=== PATIENT | male | born 2000 | race Caucasian/White ===

== ENCOUNTER 2020-04-13 12:46 | Outpatient (REF) | payer BC, SELFPAY | END 2020-04-13 12:47 | disposition home or self-care (01) | LOC: HO.LAB 12:46 | PROVIDERS: Visit Provider Internal Medicine | DX: Z20.828 Contact with and (suspected) exposure to other viral communicable diseases (principal) | CPT/HCPCS: C9803; U0003 ==

== ENCOUNTER 2025-03-17 14:21 | Outpatient (AMB) | payer OTHER, BC, SELFPAY ==
--- NOTE | 2025-03-17 14:44 | A.OFFPC_ITS ---
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 care/gerd/anxiety symptoms HPI Details Pt is a 24 y.o male who presents today to [facility]. He is transferring from pediatrics. He has a hx of gerd and anxiety. Psych: States that his anxiety is currently well-controlled. Does think that he would benefit from seeing a therapist. GI: He states 02/06 he went to ER with GI upset and was dx with gastritis and GERD. States he has no current symptoms. Symptoms resolved with Pepcid for a few days. He states that caffeine we will trigger some heartburn so he generally avoids it. Derm: Has noticed a patch of hair loss in the back of his scalp. This is been there for months. It is asymptomatic. No new products. No contacts with similar symptoms no prior history of something like this before. Fam hx: denies any significant hx. PFS Surgical History (Updated 03/17/25 @ 14:49 by Eboni Stoner CMA) No pertinent past surgical history Family History (Updated 03/17/25 @ 14:56 by Eboni Stoner CMA) Mother High cholesterol Cardiovascular disease Thyroid disorder Father History of kidney cancer Maternal Grandfather Diabetes Cardiovascular disease Paternal Grandfather HTN (hypertension) High cholesterol Diabetes Cardiovascular disease Social History (Updated 03/17/25 @ 14:51 by Eboni Stoner CMA) Housing: House Alcohol intake: current Patient Tobacco Use Status: Never used Tobacco e-Cigarette/Vaping Use: Never Used Second Hand Smoke Exposure: Yes (as a child) Substance Use Type: Marijuana service: No Current occupational status: employed Current occupation: [employer] Current occupational exposures/hazards: No Cognitive needs: No Hearing needs: No Vision needs: No Questionnaire PHQ-9 Over the last 2 weeks, how often have you been bothered by any of the following problems? 1. Little interest or pleasure in doing things: not at all 2. Feeling down, depressed, or hopeless: not at all 3. Trouble falling or staying asleep, or sleeping too much: not at all 4. Feeling tired or having little energy: several days 5. Poor appetite or overeating: not at all 6. Feeling bad about yourself - or that you are a failure or have let yourself or your family down: not at all 7. Trouble concentrating on things, such as reading the newspaper or watching television: not at all 8. Moving or speaking so slowly that other people could have noticed. Or the opposite - being so fidgety or restless that you have been moving around a lot more than usual: not at all 9. Thoughts that you would be better off or of hurting yourself in some way: not at all Total score: 1 Depression Screening Interpretation: Negative Depression Screening Done: Yes 66979 - PHQ-9 Billing: Yes Source: Developed by Drs. Leif Sierra, Cierra Sanchez, Gilberto Lucas and colleagues, with an educational emily from [employer]. Thrive Questionnaire Date Thrive assessed: 03/14/25 I am a: Patient What is your living situation today?: I have a steady place to live Within the past 12 months, did the food you bought not last and you didn't have the money to get more?: Never true Within the past 12 months, did you worry whether your food would run out before you got money to buy more?: Never true Do you have trouble paying for medicines?: No Do you have trouble getting transportation to medical appointments?: No Do you have trouble paying your heating and electricity bill?: No Do you have trouble taking care of your child, family member or friend?: No Do you have trouble with day-to-day activities such as bathing, preparing meals, shopping, managing finances, etc.?: No Are you currently unemployed and looking for a job?: No Are you interested in more education?: No Please select the resources that you would like help with: None Currently or been in a relationship where the following occur: No concerns reported THRIVE Score: 0 AUDIT C Alcohol Use Questionnaire (AUDIT-C) 1. How often do you have a drink containing alcohol?: Monthly or less 2. How many drinks containing alcohol do you have on a typical day when you are drinking?: 1 or 2 3. How often do you have six or more drinks on one occasion?: Less than monthly Total Score: 2 DESTINI-7 AMB Questionnaire DESTINI-7 Date DESTINI - 7 assessed: 03/17/25 Feeling nervous, anxious, or on edge: 1 = Several days Not being able to stop or control worryin = Not at all Worrying too much about different things: 1 = Several days Trouble relaxin = Not at all Being so restless that it is hard to sit still: 1 = Several days Becoming easily annoyed or irritable: 1 = Several days Feeling afraid as if something awful might happen: 0 = Not at all Total DESTINI-7 score (0-4 normal; 5-9 mild; 10-14 moderate; 15-21 severe): 4 Source: Developed by Drs. Leif Sierra, Cierra Sanchez, Gilberto Lucas and colleagues, with an educational emily from [employer]. DESTINI-7 Assessment Billing DESTINI-7 Assessment Tool: DESTINI-7 Assessment 46738 Physical exam (Primary Care) Vital Signs: Last Vital Signs Temp 98.1 F 03/17/25 14:51 Pulse 73 03/17/25 14:51 Resp 12 03/17/25 14:51 BP 124/72 03/17/25 14:51 Pulse Ox 98 03/17/25 14:51 Oxygen Delivery Method Room Air 03/17/25 14:51 BMI result Body Mass Index 20.0 Tobacco/Smoking Status: Tobacco use Status Tobacco use date assessed 03/17/25 03/17/25 14:56 Patient Tobacco Use Status Never used Tobacco 03/17/25 14:56 e-Cigarette/Vaping Use Never Used 03/17/25 14:56 PHQ-9: PHQ-9 Score PHQ-9: Total score 1 03/17/25 15:49 Depression Screening Interpretation: Negative Thrive Assessment: Date of Thrive Assessment Date Thrive assessed 03/14/25 03/17/25 14:46 Currently or been in a relationship where the following occur: No concerns reported Const Orientation/consciousness: patient oriented x3 HENMT Ears: hearing grossly normal bilaterally Neck Thyroid: Thyroid normal Lymphatic: no lymphadenopathy noted Resp Auscultation: clear to auscultation bilaterally Cardio Rate: regular rate Rhythm: regular rhythm Heart sounds: S1 normal heart sound present and S2 normal heart sound present GI Inspection: Yes normal to inspection Palpation (GI): Soft to palpation and Other GI palpation findings present (nontender, no cva tenderness) Auscultation: normoactive bowel sounds Rectal Exam - Male: Yes deferred Skin Other: There is a quarter-sized patch of hair loss noted. The scalp is smooth. Neuro General: patient oriented x3, gait normal and no focal motor deficits Office Procedures Flu Questionnaire Does the patient have a severe egg allergy?: No Does the patient have severe life threatening allergies?: No Does the patient have a fever or illness today?: No Has the patient ever had Guillain-[place] Syndrome?: No Has the patient ever had any past reaction to a flu shot?: No Immunizations Fluarix [id number] (PF) 45 mcg (15 mcg x 3)/0.5 mL IM syringe Performing Provider: Jamaica Ingram PA-C [place] [facility] [facility] Administered by: Eboni Stoner CMA on 03/17/25 15:49 Dose Route Admin Location Dispensed Lot Number Expiration Date NDC Treatment Supervisor 0.5 mL IM Right Deltoid 0.5 mL [id number] 11/30/25 [id number] [facility] Given Date VIS Provided VIS Publication Date 03/17/25 Single Vaccine 24 Eligibility Eligibility Date Funding Source Not [facility] Eligible 03/17/25 Private Coding Level of Care Code New Pt Level 3 (13320) Complex EM visit Add On G2211 Diagnoses Alopecia L65.9 GERD (gastroesophageal reflux disease) K21.9 Generalized anxiety disorder F41.1 Additional Codes DESTINI-7 Assessment Billing - DESTINI-7 Assessment Tool: DESTINI-7 Assessment 14126 ([id number]) PHQ-9 - 97912 - PHQ-9 Billing: Yes ([id number]) Assessment & Plan Assessment & Plan (1) Alopecia: Code(s): L65.9 - Nonscarring hair loss, unspecified Category: Medical Plan: Referral to derm (2) GERD (gastroesophageal reflux disease): Code(s): K21.9 - Gastro-esophageal reflux disease without esophagitis Category: Medical Plan: Currently well-controlled with diet changes (3) Generalized anxiety disorder: Code(s): F41.1 - Generalized anxiety disorder Category: Medical Plan: Would like to see behavioral health although well-controlled currently Plan Labs ordered today Health maintenance reviewed Flu shot given Orders: Orders Complete Blood Count Auto Diff 03/17/25 L65.9 - Nonscarring hair loss, unspecified, Z01.89 - Encounter for other specified special examinations Comprehensive [place]. Panel Fast 03/17/25 L65.9 - Nonscarring hair loss, unspecified, Z01.89 - Encounter for other specified special examinations Lipid Panel 03/17/25 L65.9 - Nonscarring hair loss, unspecified, Z01.89 - E ncounter for other specified special examinations TSH reflex Free T4 03/17/25 L65.9 - Nonscarring hair loss, unspecified, Z01.89 - Encounter for other specified special examinations Influenza [id number] Immunization 03/17/25 Z23 - Encounter for immunization Referrals Dermatology Referral L65.9 - Nonscarring hair loss, unspecified Behavioral Health Referral F41.1 - Generalized anxiety disorder Medications: New clotrimazole 1% 1 appl topical BID 30 grams 0RF 4 weeks
[2025-03-17 14:51] VITALS: BP 124/72; PULSE 73; RESP 12; TEMP 36.7; O2SAT 98
== END 2025-03-17 15:30 | disposition home or self-care (01) ==
LOC: HO.HMCFM 14:22
PROVIDERS: PCP Physician Assistant; Visit Provider Physician Assistant
DX: L65.9 Nonscarring hair loss, unspecified (principal); K21.9 Gastro-esophageal reflux disease without esophagitis; F41.1 Generalized anxiety disorder

== ENCOUNTER → 2025-03-17 14:21 | Outpatient (BNVA) | payer OTHER, SELFPAY | PROVIDERS: PCP Physician Assistant; Visit Provider Physician Assistant | DX: K21.9 Gastro-esophageal reflux disease without esophagitis (principal); L65.9 Nonscarring hair loss, unspecified; F41.1 Generalized anxiety disorder; Z23 Encounter for immunization | CPT/HCPCS: 90471; 90656; 96127; 99202 ==

== ENCOUNTER 2025-03-23 07:59 | Outpatient (REF) | payer OTHER, SELFPAY ==
--- OUTSIDE RECORDS SUMMARY | 2025-03-23 08:02 | XMS_ITS | Clinical Summary ---
Author Organization [facility] Address [address] [place] [address] Phone Care Team Providers Care Casket Trimmer Name Role Phone Justin Mckay MD Primary Care Provider Osbaldo gambino Immunizations Immunization Administration Dates Next Due DTaP 08/24/2003, 0,02/15/1999,12/19,1998 HPV Vaccine 9 Valent 06/05/2016,05/25/2015 HPV, Quadrivalent 05/21/2014 Hep B, ped/adol 05/17/1999,1998,1998 Hib (PRP-T) 11/17/1999, 9,1998,10/17 IPV 08/24/2003, 0,1998,10/17 Influenza, injectable, quadrivalent 05/04,05/21/2014,05/15/2012,02/28 Influenza, injectable, quadr ivalent, preservative free 05/31/2016 MMR 07/06/2002,08/21/1999 Meningococcal Conj (Menactra) MCV4P 05/25/2015,1 Tdap 03/06/2010 Varicella 02/28/2009,08/21/1999 Family History Relation Name Status Comments Father Alive Maternal Grandfather Alive kidney disease, heart disease, [place], hypertension diagnosed with Hypertension, HEART DISEASE NOS Maternal Grandmother Alive Mother Alive maternal addiso n Paternal Grandfather emphyse ma, DM, hypertension, triple bypass surgery sev diagnosed with Hypertension, HEART DISEASE NOS Paternal Grandmother emphyse ma Social History Tobacco Use Types Packs/Day Years Used Date Smoking Tobacco: Never Assessed Sex and Gender Information Value Date Recorded Sex Assigned at Not on file Legal Sex Male 6:09 PM EDT Gender Identity Not on file Sexual Orientation Not on file Last Filed Vital Signs Vital Sign Reading Time Taken Comments Blood Pressure 110/62 03/01/2017 12:00 AM EDT Pulse 92 08/28/2016 12:00 AM EDT Temperature 37 C (98.6 F) 08/28/2016 12:00 AM EDT Respiratory Rate - - Oxygen Saturation 98% 08/28/2016 12:00 AM EDT Inhaled Oxygen Concentration - - Weight 52.4 kg (115 lb 9.6 oz) 03/01/2017 12:00 AM EDT Height 172.1 cm (5' 7.75 ) 03/01/2017 12:00 AM E DT Body Mass Index 17.71 03/01/2017 12:00 AM EDT Plan of Treatment Health Maintenance Due Date Last Done Comments DTaP,Tdap,and Td Vaccines (7 - Td or Tdap) 03/06/2020 03/06/2010, 08/24/2003, 11/17/1999, Additional history exists Influenza Vaccines (#1) 2025 05/31/20 16, 05/25/2015, 05/21/2014, Additional history exists COVID-19 Vaccine (2024- season) 2025 Hepatitis B Vaccines Completed 05/17/1999, 1998, 1998 HIB Vaccines Completed 11/17/1999, 02/01, 1998, Additional history exists MMR Vaccines Completed 07/06/2002, 08/21/1999 IPV Vaccines Completed 08/24/2003, 08/02, 1998, Additional history exists Varicella Vaccines Completed 02/28/2009, 08/21/1999 Meningococcal Vaccine Completed 05/25/2015, 010 HPV Vaccines Completed 06/05/2016, 05/04, 05/21/2014 Hepatitis A Vaccines Aged Out No long er eligible based on patient's age to complete this topic Men B Vaccine Aged Out No longer elig ible based on patient's age to complete this topic Pneumococcal Vaccine Aged Out No long er eligible based on patient's age to complete this topic Care Teams Casket Trimmer Relationship Specialty Start Date End Date Justin Mckay MD PCP - General 10/09/17
--- OUTSIDE RECORDS SUMMARY | 2025-03-23 08:02 | XMS_ITS | Encounter Summary ---
Author Organization [facility] Address [address] [phone] Phone Care Team Providers Care Major Assembly Lineman Name Role Phone Justin Mckay MD Primary Care Provider Osbaldo gambino Encounter Details Date Type Department Care Team (Late st Contact Info) Description 10/20/2017 Conversion [facility]counter [facility] [address] [address] Justin Mckay MD Social History Tobacco Use Types Packs/Day Years Used Date Smoking Tobacco: Never Assessed Sex and Gender Information Value Date Recorded Sex Assigned at Not on file Legal Sex Male 6:09 PM EDT Gender Identity Not on file Sexual Orientation Not on file documented as of this encounter Plan of Treatment Not on file documented as of this encounter Visit Diagnoses Not on filedocumented in this encounter Care Teams Major Assembly Lineman Relationship Specialty Start Date End Date Justin Mckay MD PCP - General 10/09/17 documented as of this encounter
[2025-03-23 11:47] LABS: MANUAL DIFF FLAG NO
[2025-03-23 11:53] LABS: Hematocrit 48.5 % (42.0-52.0); Hemoglobin 17.1 g/dl (14.0-18.0); Imm Gran Abs Auto 0.01 X10*3/uL (0.00-0.03); Imm Gran Pct Auto 0.2 % (0.0-0.4); Lymphocytes Absolute Auto 2.0 X10*3/uL (1.2-4.9); Mean Corpuscular HGB Conc 35.3 g/dl (31.0-36.0); Mean Corpuscular Hemoglobin 29.7 pg (27.0-33.0); Mean Corpuscular Volume 84.3 fL (80.0-98.0); NRBC Abs Auto 0.000 X10*3/uL (0.0-0.012); NRBC Pct Auto 0.0 /100WBC (0.0-0.2); Platelet Count 199 X10*3/uL (160-400); Red Blood Count 5.75 X10*6/uL (4.60-5.80); White Blood Count 5.4 X10*3/uL (4.8-10.8)
[2025-03-23 13:04] LABS: Alanine Aminotransferase 20 U/L (0-40); Albumin Level 5.0 g/dL (3.5-5.0); Alkaline Phosphatase 62 U/L (39-117); Anion Gap 10 (12-20); Aspartate Amino Transferase 25 U/L (5-37); Blood Urea Nitrogen 17 mg/dL (9-16); Calcium 9.6 mg/dL (8.4-10.2); Carbon Dioxide 29 mmol/L (22-29); Chloride 105 mmol/L (96-108); Cholesterol 137 mg/dL (<200); Estimated Glomerular Filt Rate > 60; HDL Cholesterol 40 mg/dL (>40); Potassium 3.8 mmol/L (3.3-5.1); Sodium 140 mmol/L (135-145); Total Protein 7.2 g/dL (6.5-8.0); Triglycerides 80 mg/dL (<150)
== END 2025-03-23 08:00 | disposition home or self-care (01) ==
LOC: HO.WFDLDS 07:59
PROVIDERS: Visit Provider Physician Assistant
DX: Z01.89 Encounter for other specified special examinations (principal); L65.9 Nonscarring hair loss, unspecified
CPT/HCPCS: 36415; 80053; 80061; 84443; 85025

== ENCOUNTER 2025-04-28 11:22 | Outpatient (REF) | payer OTHER, SELFPAY ==
[2025-04-28 14:34] LABS: MANUAL DIFF FLAG NO
[2025-04-28 14:37] LABS: Hematocrit 44.9 % (42.0-52.0); Hemoglobin 15.9 g/dl (14.0-18.0); Imm Gran Abs Auto 0.05 X10*3/uL (0.00-0.03); Imm Gran Pct Auto 0.8 % (0.0-0.4); Lymphocytes Absolute Auto 2.7 X10*3/uL (1.2-4.9); Mean Corpuscular HGB Conc 35.4 g/dl (31.0-36.0); Mean Corpuscular Hemoglobin 30.0 pg (27.0-33.0); Mean Corpuscular Volume 84.7 fL (80.0-98.0); NRBC Abs Auto 0.000 X10*3/uL (0.0-0.012); NRBC Pct Auto 0.0 /100WBC (0.0-0.2); Platelet Count 233 X10*3/uL (160-400); Red Blood Count 5.30 X10*6/uL (4.60-5.80); White Blood Count 6.6 X10*3/uL (4.8-10.8)
[2025-04-28 15:29] LABS: Erythrocyte Sedimentation Rate 2 MM/HR (0-15)
[2025-04-30 13:28] LABS: Immunoglobulin A 44 mg/dL (47-310)
[2025-04-30 22:33] LABS: Transglutaminase Ab IgG <1.0 U/mL
== END 2025-04-28 11:23 | disposition home or self-care (01) ==
LOC: HO.WFDLDS 11:22
PROVIDERS: PCP Physician Assistant; Visit Provider Physician Assistant
DX: R10.31 Right lower quadrant pain (principal); R19.5 Other fecal abnormalities; K21.9 Gastro-esophageal reflux disease without esophagitis
CPT/HCPCS: 36415; 82784; 85025; 85652; 86140; 86231; 86364; 99212

== ENCOUNTER 2025-04-28 11:22 | Outpatient (AMB) | payer OTHER, BC, SELFPAY ==
--- NOTE | 2025-04-28 11:26 | MHC.PC.OV ---
Vital Signs 04/28/25 11:28 Height 5 ft 6.93 in Weight 134 lb 2 oz BMI 21.0 BP 119/70 Blood Pressure Location Rt brachial Position Sitting Pulse 61 Pulse Source Pulse Oximeter Temp 98.8 F Temp Source Temporal Artery Scan Pulse Oximetry (%) 98 Oxygen Delivery Method Room Air Intake Visit Reasons: abdominal pain Intake Note: Abdominal pain, Started in February. Hasnt had pain since beginning of April. Supervisor Metal Hanging Required: No Allergies No Known Allergies Allergy (Verified 03/17/25 14:46) Tobacco use date assessed: 03/17/25 Dental Screening Dental Screen Date: 03/17/25 HPI abdominal pain HPI Details Pt is a 24 y.o male who presents today for a follow up regarding abdominal pain. He has a hx of gerd and anxiety. Psych: States that his anxiety is currently well-controlled. Does think that he would benefit from seeing a therapist. GI: He states 02/06 he went to ER with GI upset and was dx with gastritis and GERD. Symptoms resolved with Pepcid for a few days. He states that caffeine we will trigger some heartburn so he generally avoids it. Over the last month or so he has noted intermittent right lower quadrant pain. It is on and off. Sometimes it feels like a cramping and then it goes away. Sometimes it is triggered by food. It does not last long and it is not every day or every week. No fevers or chills. No nausea, vomiting or diarrhea but he has noticed that over the last few weeks his stool has changed. He states it looks like there might be some mucus in the stool. He has not noticed blood. No weight loss. He has been drinking more coffee and otherwise has not changed his diet. No abdominal surgeries. Denies any family history of IBD or colorectal cancers Fam hx: denies any significant hx. PFSH Surgical History (Updated 03/17/25 @ 14:49 by Eboni Stoner CMA) No pertinent past surgical history Family History (Updated 03/17/25 @ 14:56 by Eboni Stoner CMA) Mother High cholesterol Cardiovascular disease Thyroid disorder Father History of kidney cancer Maternal Grandfather Diabetes Cardiovascular disease Paternal Grandfather HTN (hypertension) High cholesterol Diabetes Cardiovascular disease Social History (Updated 03/17/25 @ 14:51 by Eboni Stoner CMA) Housing: House Alcohol intake: current Patient Tobacco Use Status: Never used Tobacco e-Cigarette/Vaping Use: Never Used Second Hand Smoke Exposure: Yes (as a child) Substance Use Type: Marijuana service: No Current occupational status: employed Current occupation: [employer] Current occupational exposures/hazards: No Cognitive needs: No Hearing needs: No Vision needs: No Questionnaire Thrive Questionnaire Date Thrive assessed: 03/14/25 I am a: Patient What is your living situation today?: I have a steady place to live Within the past 12 months, did the food you bought not last and you didn't have the money to get more?: Never true Within the past 12 months, did you worry whether your food would run out before you got money to buy more?: Never true Do you have trouble paying for medicines?: No Do you have trouble getting transportation to medical appointments?: No Do you have trouble paying your heating and electricity bill?: No Do you have trouble taking care of your child, family member or friend?: No Do you have trouble with day-to-day activities such as bathing, preparing meals, shopping, managing finances, etc.?: No Are you currently unemployed and looking for a job?: No Are you interested in more education?: No Please select the resources that you would like help with: None Currently or been in a relationship where the following occur: No concerns reported THRIVE Score: 0 DESTINI-7 AMB Questionnaire DESTINI-7 Date DESTINI - 7 assessed: 03/17/25 Source: Developed by Drs. Leif Sierra, Cierra Sanchez, Gilberto Lucas and colleagues, with an educational emily from [employer]. Physical exam (Primary Care) Vital Signs: Last Vital Signs Temp 98.8 F 04/28/25 11:28 Pulse 61 04/28/25 11:28 BP 119/70 04/28/25 11:28 Pulse Ox 98 04/28/25 11:28 Oxygen Delivery Method Room Air 04/28/25 11:28 BMI result Body Mass Index 21.0 Tobacco/Smoking Status: Tobacco use Status Tobacco use date assessed 03/17/25 04/28/25 11:30 Patient Tobacco Use Status Never used Tobacco 04/28/25 11:30 e-Cigarette/Vaping Use Never Used 04/28/25 11:30 Thrive Assessment: Date of Thrive Assessment Date Thrive assessed 03/14/25 04/28/25 11:30 Currently or been in a relationship where the following occur: No concerns reported Const Orientation/consciousness: patient oriented x3 HENMT Ears: hearing grossly normal bilaterally Neck Thyroid: Thyroid normal Lymphatic: no lymphadenopathy noted Resp Auscultation: clear to auscultation bilaterally Cardio Rate: regular rate Rhythm: regular rhythm Heart sounds: S1 normal heart sound present and S2 normal heart sound present GI Inspection: Yes normal to inspection Palpation (GI): Soft to palpation and Other GI palpation findings present (nontender, no cva tenderness) Auscultation: normoactive bowel sounds Rectal Exam - Male: Yes deferred Skin General skin exam: no rashes or lesions noted Neuro General: patient oriented x3, gait normal and no focal motor deficits Results Reviewed Results Reviewed: Laboratory Tests 03/23/25 08:00 WBC 5.4 RBC 5.75 Hgb 17.1 Hct 48.5 Plt Count 199 Sodium 140 Potassium 3.8 Chloride 105 Carbon Dioxide 29 Anion Gap 10 L BUN 17 H Creatinine 1.11 Estimated GFR > 60 Fasting Glucose 84 Calcium 9.6 Total Bilirubin 1.0 AST 25 ALT 20 Alkaline Phosphatase 62 Triglycerides 80 Cholesterol 137 LDL Cholesterol, Calc 81 HDL Cholesterol 40 L TSH 0.82 Coding Level of Care Code Est Pt Level 4 (34205) Complex visit Add On G2211 Diagnoses GERD (gastroesophageal reflux disease) K21.9 RLQ abdominal pain R10.31 Change in consistency of stool R19.5 Assessment & Plan Assessment & Plan (1) GERD (gastroesophageal reflux disease): Code(s): K21.9 - Gastro-esophageal reflux disease without esophagitis Category: Medical Plan: Currently well-controlled with diet changes (2) RLQ abdominal pain: Code(s): R10.31 - Right lower quadrant pain Category: Medical Plan: currently asymptomatic (3) Change in consistency of stool: Code(s): R19.5 - Other fecal abnormalities Category: Medical Plan: as below advised to drink less coffee and chocolate Plan u/s ordered labs and stool test ordered f/u in 2-3 months or sooner if anything worsens or changes Orders: Orders US abdomen complete Today R10.31 - Right lower quadrant pain OBSX3 Today R19.5 - Other fecal abnormalities Erythrocyte Sedimentation Rate Today R10.31 - Right lower quadrant pain, R19.5 - Other fecal abnormalities Calprotectin, Fecal Today R10.31 - Right lower quadrant pain, R19.5 - Other fecal abnormalities C Reactive Protein Today R10.31 - Right lower quadrant pain, R19.5 - Other fecal abnormalities Endomysial IgA rflx Titer Today R10.31 - Right lower quadrant pain, R19.5 - Other fecal abnormalities Immunoglobulin A Today R10.31 - Right lower quadrant pain, R19.5 - Other fecal abnormalities Transglutaminase Ab IgG Today R10.31 - Right lower quadrant pain, R19.5 - Other fecal abnormalities Complete Blood Count Auto Diff Today R10.31 - Right lower quadrant pain, R19.5 - Other fecal abnormalities
[2025-04-28 11:28] VITALS: BP 119/70; PULSE 61; TEMP 37.1; O2SAT 98; BMI 21.0
--- OUTSIDE RECORDS SUMMARY | 2025-04-28 14:14 | XMS_ITS | Clinical Summary ---
Author Organization [facility] Address [address] [place] [address] Phone Care Team Providers Care Net Software Engineer Name Role Phone Justin Mckay MD Primary [...] Maternal Grandfather Alive kidney disease, heart disease, [place], hypertension diagnosed with Hypertension, HEART DISEASE NOS [...] age to complete this topic Care Teams Net Software Engineer Relationship Specialty Start Date End Date Justin Mckay MD PCP - General 10/09/17
--- OUTSIDE RECORDS SUMMARY | 2025-04-28 14:14 | XMS_ITS | Encounter Summary ---
Author Organization [facility] Address [address] [place], [place] [phone] Phone Care Team Providers Care Owner [employer] Name Role Phone Justin Mckay MD Primary Care Provider Osbaldo gambino Encounter Details Date Type Department Care Team (Late st Contact Info) Description 10/20/2017 Conversion Encounter [facility] [address] [address] Justin Mckay MD Social History Tobacco Use [...] on filedocumented in this encounter Care Teams Owner [employer] Relationship Specialty Start Date End Date Justin Mckay MD PCP - General 10/09/17 documented as of this encounter
== END 2025-04-28 11:49 | disposition home or self-care (01) ==
LOC: HO.HMCFM 11:22
PROVIDERS: PCP Physician Assistant; Visit Provider Physician Assistant
DX: K21.9 Gastro-esophageal reflux disease without esophagitis (principal); R10.31 Right lower quadrant pain; R19.5 Other fecal abnormalities

== ENCOUNTER 2025-04-29 15:30 | Outpatient (REF) | payer OTHER, SELFPAY ==
--- OUTSIDE RECORDS SUMMARY | 2025-05-03 14:45 | XMS_ITS | Clinical Summary ---
Author Organization [facility] Address [address] [place] [address] Phone Care Team Providers Care Sheep Shearer Name Role Phone Justin Mckay MD Primary [...] Maternal Grandfather Alive kidney disease, heart disease, [place], hypertension diagnosed with Hypertension, HEART DISEASE NOS [...] age to complete this topic Care Teams Sheep Shearer Relationship Specialty Start Date End Date Justin Mckay MD PCP - General 10/09/17
--- OUTSIDE RECORDS SUMMARY | 2025-05-03 14:45 | XMS_ITS | Encounter Summary ---
Author Organization [facility] Address [address] [place], [place] [phone] Phone Care Team Providers Care Nuclear Plant Equipment Operator Name Role Phone Justin Mckay MD Primary Care Provider Osbaldo gambino Encounter Details Date Type Department Care Team (Late st Contact Info) Description 10/20/2017 Conversion Encounter [facility] [address] [address] Justin Mckay MD Social History Tobacco Use [...] on filedocumented in this encounter Care Teams Nuclear Plant Equipment Operator Relationship Specialty Start Date End Date Justin Mckay MD PCP - General 10/09/17 documented as of this encounter
[2025-05-09 02:04] LABS: Calprotectin, Fecal 21 mcg/g
== END 2025-04-29 15:31 | disposition home or self-care (01) ==
LOC: HO.LNP 15:30
PROVIDERS: Visit Provider Physician Assistant
DX: R10.31 Right lower quadrant pain (principal); R19.5 Other fecal abnormalities
CPT/HCPCS: 83993